=== PATIENT | male | born 1980 | race Caucasian/White ===

== ENCOUNTER → 2019-01-10 | Outpatient (REF) | payer OTHER ==
[2019-01-10 14:25] LABS: PLATELET COUNT, AUTOMATED 155 K/uL (150-450)
[2019-01-10 14:36] LABS: LDL CHOLESTEROL 91 mg/dl
== END ==
PROVIDERS: ATTEND Nurse Practitioner Family
DX: R11.0 Nausea (principal)
CPT/HCPCS: 82040; 82150; 82247; 82310; 82374; 82435; 82465; 82565; 82947; 83690; 83718; 84075; 84132; 84155; 84295; 84450; 84460; 84478; 84520; 85025; 86677